=== PATIENT | female | born 1955 | race Caucasian/White ===

== ENCOUNTER 2017-07-05 05:52 | Day surgery (SDC) | payer MEDICARE, OTHER ==
[2017-07-05] MEDS: PROPARACAINE 0.5% OPHTH SOL 15ML OD (06:23)
[2017-07-05] MEDS: OFLOXACIN 0.3 % (OCUFLOX) OPTH SOL 5ML OD (06:24)
[2017-07-05] MEDS: PHENYLEPHRINE 2.5% OPHTH SOL 2ML OD (06:25)
[2017-07-05] MEDS: TROPICAMIDE 1% OPHTH SOLN 2ML OD (06:26)
[2017-07-05 06:56] LABS: BEDSIDE GLUCOSE 166 MG/DL (80-115)
[2017-07-05] MEDS ORDERED: MIDAZOLAM INJ 2 MG/2 ML VIAL (J2250) As Ordered (08:03)
[2017-07-05] MEDS: POVIDONE-IODINE 5% OPHTH PREP SOL 30ML As Ordered (08:03)
[2017-07-05] MEDS ORDERED: fentaNYL 100 MCG/2 ML INJECTION (J3010) As Ordered (08:03)
[2017-07-05] MEDS: BALANCED SALT IRRIGATION SOLUTION 500ML BAG (FOR OR EYE MACHINE) As Ordered (08:05)
[2017-07-05] MEDS: DUOVISC (0.50ML VISCOAT/0.55ML PROVISC) OPHTH KIT As Ordered (08:05)
[2017-07-05] MEDS: ACETYLCHOLINE OPHTH SOLN 1% 2ML (MIOCHOL-E) As Ordered (08:05)
[2017-07-05] MEDS: LIDOCAINE 0.75%/EPINEPHRINE 0.025% IN BSS 1ML SYR INTRACAMERAL (OR ONLY) As Ordered (08:05)
[2017-07-05] MEDS: TETRACAINE 0.5% OPHTH SOLN 4ML As Ordered (08:07)
[2017-07-05] MEDS: CEFUROXIME 1MG/0.1ML INTRACAMERAL INJ As Ordered (08:07)
== END 2017-07-05 09:04 | disposition home or self-care (01) ==
LOC: M SDC 05:52
DX: H25.11 Age-related nuclear cataract, right eye (principal); I10 Essential (primary) hypertension; E78.5 Hyperlipidemia, unspecified; J45.909 Unspecified asthma, uncomplicated; F17.210 Nicotine dependence, cigarettes, uncomplicated; F32.9 Major depressive disorder, single episode, unspecified; Z79.4 Long term (current) use of insulin
CPT/HCPCS: 66984

== ENCOUNTER → 2017-12-11 | Outpatient (REF) | payer MEDICARE, OTHER | LOC: M LAB REF 18:28 | DX: D23.12 Other benign neoplasm of skin of left eyelid, including canthus (principal) | CPT/HCPCS: 88304 ==